=== PATIENT | male | born 1990 | race Caucasian/White ===

== ENCOUNTER 2020-09-11 15:19 | Emergency (ER) | payer SELFPAY ==
[2020-09-11 15:51] LABS: BASOPHIL 1.1 % (0-2); EOSINOPHIL 1.1 % (0-5); HCT 47.7 % (42.0-52.0); HGB 16.9 g/dl (13.2-18.0); LYMPHOCYTE 18.8 % (15-48); MCH 30.4 pg (25.0-31.0); MCHC 35.4 g/dL (32.0-36.0); MCV 85.8 fL (78.0-100.0); MONOCYTE 8.6 % (0-12); MPV 9.4 fL (6.0-9.5); NEUTROPHIL 70.2 % (41-80); NRBC 0; PLT 204 K/uL (150-400); RBC 5.56 M/uL (4.70-6.00); RDW 11.7 % (11.5-14.0); WBC 8.5 K/uL (4.0-10.5)
[2020-09-11 16:02] LABS: ALBUMIN 4.1 g/dL (3.4-5.0); BILIRUBIN - TOTAL 0.6 mg/dL (0.2-1.0); BUN/CREAT RATIO (CALC) 9.7 RATIO; CREATININE 1.03 mg/dL (0.67-1.17); GLOBULIN (CALCULATION) 3.1 g/dL; POTASSIUM 3.1 mmol/L (3.5-5.1); TOTAL PROTEIN 7.2 g/dL (6.4-8.2)
== END 2020-09-11 17:00 | disposition home or self-care (01) ==
LOC: FER 15:19
PROVIDERS: Emergency Medicine
DX: E16.2 Hypoglycemia, unspecified (principal); R06.02 Shortness of breath; Z90.49 Acquired absence of other specified parts of digestive tract
CPT/HCPCS: 36415; 36600; 71045; 80053; 82803; 84484; 85025; 93005